=== PATIENT | male | born 1950 | race Caucasian/White ===

== ENCOUNTER 2021-02-24 11:30 | Day surgery (SDC) | payer BC, OTHER ==
[2021-02-18 10:15] VITALS: BMI 31.6
[2021-02-24] MEDS ORDERED: MIDAZOLAM HCL 2 MG/2 ML SINGLE DOSE VIAL ONE (13:27)
[2021-02-24] MEDS ORDERED: ROPIVACAINE HCL 0.5% 30ML VIAL ONE (13:27)
[2021-02-24] MEDS ORDERED: DEXAMETHASONE SOD PHOSPHATE 10 MG/1 ML VIAL ONE (13:27)
[2021-02-24] MEDS ORDERED: ONDANSETRON 4 MG/2 ML VIAL IVPUSH PRN (13:57)
[2021-02-24] MEDS ORDERED: PROMETHAZINE HCL 25 MG/1 ML VIAL IVPUSH PRN (13:57)
[2021-02-24] MEDS ORDERED: oxyCODONE HCL 5 MG TABLET PO PRN (13:57)
[2021-02-24] MEDS ORDERED: LACTATED RINGERS SOLUTION 1,000 ML IV SCH (14:00)
[2021-02-24] MEDS ORDERED: PROPOFOL 20 ML ONE ×2 (14:05)
[2021-02-24] MEDS ORDERED: ONDANSETRON 4 MG/2 ML VIAL ONE (15:40)
[2021-02-24 16:23] VITALS: TEMP 97.8
[2021-02-24 17:31] VITALS: BP 140/83; PULSE 71
== END 2021-02-24 17:15 | disposition home or self-care (01) ==
LOC: FASU 11:30
PROVIDERS: ATTEND Orthopaedic Surgery
PROC: 0LQ40ZZ Repair Left Upper Arm Tendon, Open Approach (ICD-10-PCS; principal; 2021-02-24 14:28)
DX: S46.312A Strain of muscle, fascia and tendon of triceps, left arm, initial encounter (principal); X58.XXXA Exposure to other specified factors, initial encounter; Y93.9 Activity, unspecified; Y92.9 Unspecified place or not applicable
CPT/HCPCS: 94760; J1100